=== PATIENT | female | born 1985 | race Caucasian/White ===

== ENCOUNTER 2018-07-27 19:19 | Emergency (ER) | payer SELFPAY ==
[~2018-07-27] VITALS: Ht 167.6 cm; Wt 59.9 kg
[2018-07-27] MEDS ORDERED: ONDANSETRON HCL 4 MG/2 ML VIAL ONE (19:39)
[2018-07-27] MEDS ORDERED: HYDROmorphone HCL 2 MG/ML VL ONE (19:39)
[2018-07-27] MEDS ORDERED: ONDANSETRON HCL 4 MG/2 ML VIAL IV ONE (19:45)
[2018-07-27] MEDS ORDERED: HYDROmorphone HCL 2 MG/ML VL IV ONE (19:45)
[2018-07-27 20:13] LABS: Urine Bacteria NONE SEEN /hpf (None Seen); Urine Blood Negative /uL (Negative); Urine Specific Gravity 1.016 (1.001-1.035); Urine WBC 3 /hpf (0 - 5)
[2018-07-27 20:38] LABS: Amphetamine Screen, Urine NEGATIVE (NEGATIVE); Barbiturate Scree,Urine NEGATIVE (NEGATIVE); Benzodiazephine Screen, Urine NEGATIVE (NEGATIVE); Cannabinoid Screen, Urine POSITIVE (NEGATIVE); Cocaine Screen, Urine NEGATIVE (NEGATIVE); Opiate Scree,Urine NEGATIVE (NEGATIVE); Phencyclidine Screen, Urine NEGATIVE (NEGATIVE)
[2018-07-27] MEDS ORDERED: LORazepam 0.5 MG TAB PO ONE (21:00)
[2018-07-27] MEDS ORDERED: HYDROcodone-ACET 10/325MG TAB PO ONE (21:00)
[2018-07-27 21:22] LABS: Basophils # (auto) 0 uL; Basophils % (auto) 0.4 % (0.0-2.0); Eosinophils # (auto) 0 uL; Eosinophils % (auto) 0.2 % (0.0-7.0); Hematocrit 44.7 % (36.0-46.0); Hemoglobin 15.1 g/dL (12.2-16.2); Lymphocytes % (auto) 18.8 % (10.0-50.0); Mean Corpuscular Hemoglobin 32.3 pg (28.0-32.0); Mean Corpuscular Hgb Conc. 33.7 g/dL (32.0-36.0); Mean Corpuscular Volume 95.8 fL (80.0-100.0); Monocytes # (auto) 0.6 uL; Monocytes % (auto) 5.3 % (0.0-12.0); Neutrophils % (auto) 75.3 % (37.0-80.0); Platelet Count (auto) 224 10^3/uL (140-450); Red Blood Cells 4.67 10^6/uL (4.0-5.20); Red Cell Distribution Width 13.3 % (11.8-14.3); White Blood Cell 10.7 10^3/uL (4.4-10.8)
[2018-07-27 21:40] LABS: Albumin 3.6 g/dL (3.4-5.0); BUN/Creatinine Ratio 13.3; Calcium 7.9 mg/dL (8.5-10.1)
[2018-07-27 21:42] LABS: Bilirubin, Total 0.3 mg/dL (0.2-1.0); Total Protein 6.5 g/dL (6.4-8.2)
[2018-07-27 22:27] VITALS: BP 126/56
== END 2018-07-27 23:47 | disposition home or self-care (01) ==
LOC: ER 19:19
DX: M54.9 Dorsalgia, unspecified (principal); F17.210 Nicotine dependence, cigarettes, uncomplicated; F12.10 Cannabis abuse, uncomplicated; V28.0XXA Motorcycle driver injured in noncollision transport accident in nontraffic accident, initial encounter; Y93.89 Activity, other specified; Y99.8 Other external cause status; Y92.89 Other specified places as the place of occurrence of the external cause
CPT/HCPCS: 36415; 70450; 72125; 72128; 72131; 73030; 73630; 74176; 80053; 80307; 80320; 81001; 85025; 96374; 96375; 99285; J1170; J2405

== ENCOUNTER 2018-12-26 18:02 | Emergency (ER) | payer SELFPAY ==
[~2018-12-26] VITALS: Ht 167.6 cm; Wt 55.3 kg
[2018-12-26 18:19] VITALS: BP 131/79
[2018-12-26 19:01] LABS: Urine Bacteria FEW /hpf (None Seen); Urine Blood Negative /uL (Negative); Urine Mucus FEW (None Seen); Urine Specific Gravity 1.025 (1.001-1.035); Urine WBC 4 /hpf (0 - 5)
== END 2018-12-26 21:52 | disposition home or self-care (01) ==
LOC: ER 18:05
DX: M23.91 Unspecified internal derangement of right knee (principal); M19.90 Unspecified osteoarthritis, unspecified site; F17.210 Nicotine dependence, cigarettes, uncomplicated; F12.10 Cannabis abuse, uncomplicated
CPT/HCPCS: 73562; 73590; 81001; 81002; 81025

== ENCOUNTER 2018-12-29 17:05 | Emergency (ER) | payer MEDICAID ==
[~2018-12-29] VITALS: Ht 167.6 cm; Wt 55.3 kg
[2018-12-29 17:12] VITALS: BP 151/88
== END 2018-12-29 21:17 | disposition home or self-care (01) ==
LOC: ER 17:07
DX: M13.861 Other specified arthritis, right knee (principal); F17.210 Nicotine dependence, cigarettes, uncomplicated; F12.90 Cannabis use, unspecified, uncomplicated

== ENCOUNTER 2019-02-01 01:51 | Emergency (ER) | payer MEDICAID ==
[~2019-02-01] VITALS: Ht 167.6 cm; Wt 56.2 kg
[2019-02-01 02:06] VITALS: BP 146/94
[2019-02-01] MEDS ORDERED: KETOROLAC TROMETH 60MG/2ML VIAL IM ONE (03:00)
[2019-02-01] MEDS ORDERED: IBUPROFEN 800 MG TAB PO ONE (03:15)
== END 2019-02-01 03:30 | disposition home or self-care (01) ==
LOC: ER 01:58
DX: N76.4 Abscess of vulva (principal); F17.210 Nicotine dependence, cigarettes, uncomplicated; F12.10 Cannabis abuse, uncomplicated
CPT/HCPCS: 99283; J1885